=== PATIENT | male | born 1955 | race Caucasian/White ===

== ENCOUNTER → 2016-06-07 | Outpatient (CLI) | payer MEDICARE ==
[~2016-06-07] MED LIST: AMIT25TA PO; ASPI1TAB PO; GABA-282 PO; HYDR50CA2 PO; IRBE150T12 PO; LEVO137T2 PO; MELO15TA4 PO; METF-415 PO; METO-207 PO; METO10TA2 PO; OMEP20CA3 PO; SIMV40TA2 PO; SPIR25TA2 PO; TAMS0.4C2 PO; TEMA30CA PO; TIZA4CAP3 PO
--- NOTE | 2016-06-20 03:06 | ECWPNPC ---
PATIENT NAME: MANJEET NORWOOD : 1955 GENDER: MALE VISIT DATE: 06/07/2016 DISCHARGE DATE: 06/07/16 1153 VISIT LOCKED DATE TIME: PHYSICIAN: INES COATS RESOURCE: INES COATS REASON FOR APPOINTMENT 1. LOW BACK AND NECK AREA HISTORY OF PRESENT ILLNESS HISTORY OF PRESENT ILLNESS: PAIN THE PATIENT DESCRIBES THE PAIN... FALL RISK SCREENING: SCREENING :NO FALLS IN THE PAST YEAR TODAY'S VISIT: NOTES: RETURNS TO CLINIC FOR FIRST VISIT SINCE 12/20/15. RATES PAIN TODAY 5/10. DESCRIBES PAIN CONSTANT AND LOCATED AT BASE OF NECK AND RADIATES ACROSS TO BOTH SHOULDERS. CURRENT MEDICATIONS TAKING SIMVASTATIN 40 40MG TABLET ORAL TAKING ASPIRIN 81 MG TABLET DELAYED RELEASE 1 TABLET ORALLY ONCE A DAY TAKING AMITRIPTYLINE HCL 150 MG TABLET 1 TABLET AT BEDTIME ORALLY ONCE A DAY TAKING METFORMIN HCL ER 1000 MG TABLET EXTENDED RELEASE 24 HOUR 1 TABLET WITH EVENING MEAL ORALLY TWICE A DAY TAKING MECLIZINE HCL 25 MG TABLET CHEWABLE 1 TABLET NEEDED ORALLY ONCE A DAY TAKING FLOMAX 0.4 MG CAPSULE 1 CAPSULE 30 MINUTES AFTER THE SAME MEAL EACH DAY ORALLY QHS TAKING TIZANIDINE HCL 4 MG TABLET 1 TABLET NEEDED ORALLY EVERY 8 HRS TAKING MELOXICAM 15 MG TABLET 1 TABLET ORALLY ONCE A DAY TAKING SPIRONOLACTONE 25 MG TABLET 1 TABLET ORALLY ONCE A DAY TAKING LEVOTHYROXINE SODIUM 137 MCG TABLET 1 TABLET ORALLY ONCE A DAY TAKING IBUPROFEN 600 MG TABLET 1 TABLET ORALLY THREE TIMES A DAY TAKING METOCLOPRAMIDE HCL 10 MG TABLET ORALLY THREE TIMES A DAY NEEDED TAKING METOPROLOL SUCCINATE ER 50 MG TABLET EXTENDED RELEASE 24 HOUR 1 TABLET ORALLY ONCE A DAY TAKING OMEPRAZOLE 20 MG CAPSULE DELAYED RELEASE 2 CAPSULES ORALLY ONCE A DAY TAKING TEMAZEPAM 30 MG CAPSULE 1 CAPSULE AT BEDTIME NEEDED ORALLY ONCE A DAY MEDICATION LIST REVIEWED AND RECONCILED WITH THE PATIENT PAST MEDICAL HISTORY HIGH BLOOD PRESSURE CHRONIC SWELLING OF LEFT LEG SLEEP APNEA W/CPAP HYPERLIPIDEMIA CHRONIC BACK PAIN ACQUIRED PHIMOSIS DIABETES ARTHRITIS ALLERGIES NONE SURGICAL HISTORY VEIN STRIPPING LEFT AND RIGHT LEG BLOOD CLOT IN HEAD SOCIAL HISTORY GENERAL: PAIN CLINIC PFS, CLERGY, PUBLIC HEALTH REFERRALS CLERGY REFERRAL NEEDED?NO WAS THE PROVIDER NOTIFIED OF ANY PERTINENT INFO?NO PFS REFERRAL NEEDED?NO PUBLIC HEALTH REFERRAL NEEDED?NO PATIENT: ____. HOSPITALIZATION/MAJOR DIAGNOSTIC PROCEDURE NO HOSPITALIZATION HISTORY. REVIEW OF SYSTEMS CONSTITUTIONAL: ANY CHANGE IN YOUR MEDICAL CONDITION? NO . CHILLS NO . FEVER NO . INFECTION: DO YOU HAVE NEW INFECTIONS? NO . DO YOU HAVE HISTORY OF MRSA? NO . MUSCULOSKELETAL: ANY NEW PATTERNS OF PAIN OR NUMBNESS? NO . GASTROENTEROLOGY: ANY NEW CHANGE IN BOWEL CONTROL? NO - CONSTIPATION Q 1-2 WEEKS . GENITOURINARY: ANY NEW CHANGE IN BLADDER CONTROL? NO . IS THERE A CHANCE YOU COULD BE ? NO . HEMATOLOGY/LYMPH: DO YOU TAKE ANY BLOOD THINNERS? (FOR EXAMPLE- COUMADIN, PLAVIX, AGGRENOX, PLATEL, PRADAXA, OR XARELTO) NO . WHEN WAS YOUR LAST DOSE? DATE: TIME: . NEUROLOGY: HAVE YOU FALLEN IN THE PAST 6 MONTHS? YES . ANY NEW EXTREMITY NUMBNESS OR WEAKNESS? NO . CARDIOLOGY: DO YOU HAVE A PACEMAKER OR DEFIBRILLATOR? NO . RESPIRATORY: HAVE YOU BEEN SICK IN THE PAST WEEK? NO . FEVER NO . FLU LIKE SYMPTOMS? NO . COUGH NO . INTEGUMENTARY: DO YOU HAVE ANY RASHES OR OPEN SORES? NO . ALLERGIC/IMMUNO: ARE YOU ALLERGIC TO SHELLFISH OR IV DYE? NO . ANY NEW ALLERGIES? NO . PSYCHIATRIC: DO YOU HAVE THOUGHTS OF HURTING YOURSELF OR SOMEONE ELSE? NO . ARE YOU ABUSED, NEGLECTED, OR IN AN UNSAFE ENVIRONMENT? NO . ENDOCRINOLOGY: ARE YOU DIABETIC? YES BLOOD SUGARS IMPROVING, NOW LESS THAN 200. . OTHER: DO YOU NEED ANY PRESCRIPTIONS? NO . IF YES, PLEASE LIST: ____ . ANY NEW PROBLEMS WITH YOUR MEDICATIONS? NO . WHEN DID YOU LAST EAT? ____ . WHEN DID YOU LAST DRINK? ____ . WHAT DID YOU LAST DRINK? ____ . NAME OF PERSON DRIVING YOU HOME? ____ . DO YOU HAVE ANY OTHER QUESTIONS OR CONCERNS NO . REVIEWED BY: PROVIDER: INES WATSON . VITAL SIGNS WT 266 LBS, HT 69.5 IN, BMI 38.71 INDEX, BP 145/81 MM HG, HR 96 /MIN, RR 18 /MIN, TEMP 97.3 F, OXYGEN SAT % 93%, NA INITIALS SC11:06. EXAMINATION GENERAL EXAMINATION: PSYCHALERT , ORIENTED X 3 , APPROPRIATE MOOD AND AFFECT . HEENT:NORMOCEPHALIC, NO LYMPHADENOPATHY, NO THYROMEGLY. LUNGS:CLEAR TO AUSCULTATION BILATERALLY. HEART:NO MURMURS, CLICK OR RUBS, HEART RATE REGULAR, NO CAROTID BRUIT. MUSCULOSKELETAL:MUSCLE STRENGTH TESTING 5/5 BILATERAL UPPER EXTREMITIES. POINT TENDERNESS AT C7 PROMINENCE. , TRIGGER POINTS:, ELICITED WITH PALPATION OVER CERVICAL SPINOUS PROCESSES AND ACROSS THE TRAPEZIUS MUSCLES BILATERALLY. RESTRICTION OF ROM IS NOTED. SLOW TO RISE TO STANDING POSITION. POSTURE UPRIGHT. GAIT MILDLY ANTALGIC. EXTREMITIES:LEFT LEG WITH SIGNIFICANTLY GREATER CIRCUMFERNCE THAN RIGHT , FROM ANKLE TO KNEE. NO SPECIFIC EDEMA NOTED IN LEFT LEG. NO ERRYTHEMA NOTED LEFT LEG. NEUROLOGIC EXAM:DTR'S TRACE BILATERALLY IN BILATERAL UPPER EXTREMITIES, AND AT LEFT KNEE, 2+ RIGHT KNEE. NO CLONUS. SENSORY CHANGE LEFT LATERAL THIGH ONLY.. ASSESSMENTS LUMBAR FACET ARTHROPATHY - M46.96 (PRIMARY) CERVICAL DISC DISPLACEMENT - M50.20 CERVICAL RADICULOPATHY - M54.12 TREATMENT LUMBAR FACET ARTHROPATHY NOTES: CALL HERE -[phone] IF NOT HEARING ON SURGICAL APPOINTMENT IN TWO (2) WEEKS. , #128 - SCREENING BMI AND F/U PLAN IN : BMI ABOVE NORMAL TODAY. DISCUSSED WITH PATIENT NUTRITIONAL FOOD CHOICES TO ASSIST WITH WEIGHT LOSS. RECCOMMENDED REDUCING SALT, SUGAR, SODA INTAKE. RECOMMEND INCREASE ACTIVITY TO INCLUDE WALKING ON A REGULAR BASIS. REFERRAL TO:[facility] REASON:CERVICAL DISC DISPLACEMENT, BILATERAL CERVICAL RADICAULOPATHY. PLEASE EVAL FOR SURGICAL OPTIONS CERVICAL DISC DISPLACEMENT CERVICAL EPIDURAL INES CRAWFORD 06/07/2016 11:36:08 AM > BILATERAL NECK PAIN PROCEDURE CODES G8730 PAIN ASSESS POS TOOL F/U PLAN DOC G8427 DOC MEDS VERIFIED W/PT OR RE G8783 BP SCR PRFRM RCMDD DEFIND SCR INTVL 3016F PT SCRND UNHLTHY [place] USE 1124F ACP DISCUSS-NO DSCNMKR DOCD 1036F TOBACCO NON-USER 0518F FALL PLAN OF CARE DOCD G8420 BMI<30 AND >=22 CALC & DOCU 3288F FALL RISK ASSESSMENT DOCD FA211 ESTABILISHED PATIENT [facility] F[facility] CHARGE DISPOSITION & COMMUNICATION FOLLOW UP AFTER INJECTION (REASON: CHECK AUTH FOR CESB) ELECTRONICALLY SIGNED BY YUSEF CLOEMAN ON 06/19/2016 AT 09:32 AM EDT DISCLAIMER : THIS IS A VISIT SUMMARY EXTRACTED FROM THE [employer] CHART. IT IS NOT A COPY OF THE [employer] PROGRESS NOTE. MTDD
== END ==
LOC: M PAIN 11:00
PROVIDERS: ATTEND Nurse Practitioner Family
DX: G89.29 Other chronic pain (principal); M46.96 Unspecified inflammatory spondylopathy, lumbar region; M50.20 Other cervical disc displacement, unspecified cervical region; M54.12 Radiculopathy, cervical region; I10 Essential (primary) hypertension; G47.30 Sleep apnea, unspecified; E78.5 Hyperlipidemia, unspecified; E11.9 Type 2 diabetes mellitus without complications; M19.90 Unspecified osteoarthritis, unspecified site; Z79.82 Long term (current) use of aspirin; Z79.84 Long term (current) use of oral hypoglycemic drugs; Z79.1 Long term (current) use of non-steroidal anti-inflammatories (NSAID); Z79.899 Other long term (current) drug therapy

== ENCOUNTER → 2016-06-23 | Outpatient (CLI) | payer MEDICARE ==
[~2016-06-23] MED LIST changes: +ISOVUE-M 300 61% 15ML VIAL (Q9967) As Ordered ONE; +LIDOCAINE 1% SDV INJ 30 ML VIAL As Ordered ONE; +diazePAM 5 MG TAB As Ordered ONE; +methylPREDNISolone SUSP 40 MG/ML (DEPO-medrol) VIAL (J1030) As Ordered ONE; +oxyCODONE 5MG TAB As Ordered ONE
--- NOTE | 2016-06-23 18:16 | REP ---
FLUOROSCOPIC GUIDED SPINAL INJECTION: The films were reviewed with Dr. Roberts. The patient has a history of neck pain. The portable C-Arm is provided in the OR for Dr. Harry for fluoroscopic guidance. Three intraoperative fluoroscopic spot films were obtained for needle placement verification for cervical epidural injection. The films are on the PACs system and are available for review. 15 seconds of fluoroscopy time was utilized for this procedure. Reviewed by LORENA Melvin 06/26/2016 08:20 AEdited and Signed by Tim Roberts MD 06/26/2016 05:37 P
--- NOTE | 2016-07-02 23:59 | ECWPNPC ---
PATIENT NAME: MANJEET NORWOOD : 1955 GENDER: MALE VISIT DATE: 06/23/2016 DISCHARGE DATE: 06/23/16 1410 VISIT LOCKED DATE TIME: PHYSICIAN: TRACI VILLA RESOURCE: TRACI VILLA REASON FOR APPOINTMENT 1. CE HISTORY OF PRESENT ILLNESS HISTORY OF PRESENT ILLNESS: PAIN THE PATIENT DESCRIBES THE PAIN... FALL RISK SCREENING: SCREENING :NO FALLS IN THE PAST YEAR CURRENT MEDICATIONS TAKING SIMVASTATIN 40 40MG TABLET ORAL , NOTES: 2199 TAKING ASPIRIN 81 MG TABLET DELAYED RELEASE 1 TABLET ORALLY ONCE A DAY, NOTES: YESTERDAY AM TAKING AMITRIPTYLINE HCL 150 MG TABLET 1 TABLET AT BEDTIME ORALLY ONCE A DAY, NOTES: 2199 TAKING METFORMIN HCL ER 1000 MG TABLET EXTENDED RELEASE 24 HOUR 1 TABLET WITH EVENING MEAL ORALLY TWICE A DAY, NOTES: DINNER TAKING MECLIZINE HCL 25 MG TABLET CHEWABLE 1 TABLET NEEDED ORALLY ONCE A DAY, NOTES: YESTERDAY AM TAKING FLOMAX 0.4 MG CAPSULE 1 CAPSULE 30 MINUTES AFTER THE SAME MEAL EACH DAY ORALLY QHS, NOTES: YESTERDAY AM TAKING TIZANIDINE HCL 4 MG TABLET 1 TABLET NEEDED ORALLY EVERY 8 HRS, NOTES: 2199 TAKING MELOXICAM 15 MG TABLET 1 TABLET ORALLY ONCE A DAY, NOTES: YESTERDAY AM TAKING SPIRONOLACTONE 25 MG TABLET 1 TABLET ORALLY ONCE A DAY, NOTES: YESTERDAY AM TAKING LEVOTHYROXINE SODIUM 137 MCG TABLET 1 TABLET ORALLY ONCE A DAY, NOTES: YESTERDAY AM TAKING IBUPROFEN 600 MG TABLET 1 TABLET ORALLY THREE TIMES A DAY, NOTES: TAKING METOCLOPRAMIDE HCL 10 MG TABLET ORALLY THREE TIMES A DAY NEEDED, NOTES: 2199 TAKING METOPROLOL SUCCINATE ER 50 MG TABLET EXTENDED RELEASE 24 HOUR 1 TABLET ORALLY ONCE A DAY, NOTES: YESRTDAY AM TAKING OMEPRAZOLE 20 MG CAPSULE DELAYED RELEASE 2 CAPSULES ORALLY ONCE A DAY, NOTES: YESTERDAY AM TAKING TEMAZEPAM 30 MG CAPSULE 1 CAPSULE AT BEDTIME NEEDED ORALLY ONCE A DAY, NOTES: 2199 MEDICATION LIST REVIEWED AND RECONCILED WITH THE PATIENT PAST MEDICAL HISTORY HIGH BLOOD PRESSURE CHRONIC SWELLING OF LEFT LEG SLEEP APNEA W/CPAP HYPERLIPIDEMIA CHRONIC BACK PAIN ACQUIRED PHIMOSIS DIABETES ARTHRITIS ALLERGIES NONE REVIEW OF SYSTEMS CONSTITUTIONAL: ANY CHANGE IN YOUR MEDICAL CONDITION? NO . CHILLS NO . FEVER NO . INFECTION: DO YOU HAVE NEW INFECTIONS? NO . DO YOU HAVE HISTORY OF MRSA? NO . MUSCULOSKELETAL: ANY NEW PATTERNS OF PAIN OR NUMBNESS? NO . GASTROENTEROLOGY: ANY NEW CHANGE IN BOWEL CONTROL? NO . GENITOURINARY: ANY NEW CHANGE IN BLADDER CONTROL? NO . IS THERE A CHANCE YOU COULD BE ? NO . HEMATOLOGY/LYMPH: DO YOU TAKE ANY BLOOD THINNERS? (FOR EXAMPLE- COUMADIN, PLAVIX, AGGRENOX, PLATEL, PRADAXA, OR XARELTO) NO . WHEN WAS YOUR LAST DOSE? DATE: TIME: . NEUROLOGY: HAVE YOU FALLEN IN THE PAST 6 MONTHS? NO . ANY NEW EXTREMITY NUMBNESS OR WEAKNESS? NO . CARDIOLOGY: DO YOU HAVE A PACEMAKER OR DEFIBRILLATOR? NO . RESPIRATORY: HAVE YOU BEEN SICK IN THE PAST WEEK? NO . FEVER NO . FLU LIKE SYMPTOMS? NO . COUGH NO . INTEGUMENTARY: DO YOU HAVE ANY RASHES OR OPEN SORES? NO . ALLERGIC/IMMUNO: ARE YOU ALLERGIC TO SHELLFISH OR IV DYE? NO . ANY NEW ALLERGIES? NO . PSYCHIATRIC: DO YOU HAVE THOUGHTS OF HURTING YOURSELF OR SOMEONE ELSE? NO . ARE YOU ABUSED, NEGLECTED, OR IN AN UNSAFE ENVIRONMENT? NO . ENDOCRINOLOGY: ARE YOU DIABETIC? YES 241 AT 0930 TODAY . OTHER: DO YOU NEED ANY PRESCRIPTIONS? NO . IF YES, PLEASE LIST: ____ . ANY NEW PROBLEMS WITH YOUR MEDICATIONS? NO . WHEN DID YOU LAST EAT? 6PM . WHEN DID YOU LAST DRINK? 10PM . WHAT DID YOU LAST DRINK? WATER . NAME OF PERSON DRIVING YOU HOME? ROBER . DO YOU HAVE ANY OTHER QUESTIONS OR CONCERNS NO . REVIEWED BY: PROVIDER: . VITAL SIGNS WT 263.8 LBS, HT 69.5 IN, BMI 38.39 INDEX, BP 138/79 MM HG, HR 76 /MIN, RR 18 /MIN, TEMP 97.3 F, OXYGEN SAT % 95%, NA INITIALS SC 11:30, REVIEWED BY: LS. ASSESSMENTS CERVICAL DISC DISORDER AT C5-C6 LEVEL WITH RADICULOPATHY - M50.122 (PRIMARY) PROCEDURES PN CERVICAL EPIDURAL PRE PROCEDURE DIAGNOSIS CERVICAL DISC DISORDER WITH RADICULOPATHY POST PROCEDURE DIAGNOSIS CERVICAL DISC DISORDER WITH RADICULOPATHY PROCEDURE CERVICAL EPIDURAL STEROID INJECTION UNDER FLUOROSCOPIC GUIDANCE SURGEON DR. TRACI VILLA REED CLEANER NONE ANESTHESIA LOCAL PRE PROCEDURE NOTE THE PATIENT HAS A HISTORY OF CHRONIC CERVICAL PAIN. I EVALUATE THE PATIENT AND REVIEWED THE CHART. I WENT OVER THE RISKS, ALTERNATIVES, AND BENEFITS ASSOCIATED WITH THIS PROCEDURE. THE PATIENT WOULD LIKE TO PROCEED AND GIVE CONSENT TO PERFORMED THE PROCEDURE. THE PATIENT DENIES UNEXPLAINABLE WEIGHT LOSS, FEVER, CHILLS, OR NEW CHANGES IN URINARY OR BOWEL CONTROL DESCRIPTION OF PROCEDURE THE PATIENT WAS BROUGHT TO THE PROCEDURE ROOM AND PLACED IN THE PRONE POSITION. THE CERVICOTHORACIC AREA WAS CLEANED WITH BETADINE SOLUTION AND DRAPED ASEPTICALLY. THE PROCEDURE WAS DONE UNDER STERILE CONDITIONS. I CHECKED LATERALITY AND THE LEVEL WHERE THE PROCEDURE WAS GOING TO BE PERFORMED WITH THE PATIENT AND THE SUPPORTING STAFF AT THE MOMENT OF THE TIME OUT IN THE PROCEDURE ROOM. UNDER FLUOROSCOPIC GUIDANCE, THE TARGET WAS SELECTED AT THE INTERLAMINAR LEVEL OF C7-T1. LIDOCAINE WAS USED TO NUMB THE SKIN AND THE SUBCUTANEOUS TISSUE BELOW IT. EPIDURAL TUOHY NEEDLE 17-GAUGE WAS ADVANCED UNDER FLUOROSCOPIC GUIDANCE AND FOLLOWING PATIENT FEEDBACK UNTIL THE EPIDURAL SPACE WAS REACHED 6 CM DEEP INTO THE SKIN BY THE LOSS OF RESISTANCE TECHNIQUE. ISOVUE M DYE 30%, 0.25 ML, WAS INJECTED SHOWING ADEQUATE SPREAD OF THE DYE. THEN, A SOLUTION OF 3 ML OF NORMAL SALINE WITH DEPO-MEDROL 60 MG WAS INJECTED SLOWLY FOLLOWING PATIENT FEEDBACK. THERE WAS NO EVIDENCE OF BLOOD, PARESTHESIA OR CEREBROSPINAL FLUID DURING THE PROCEDURE. THE PATIENT WAS SENT TO THE RECOVERY ROOM. THE PATIENT WAS MOVING THE EXTREMITIES AND DOING WELL. THERE WAS NO COMPLICATION DURING THE PROCEDURE. FLUOROSCOPY TIME WAS 15 SECONDS POST PROCEDURE NOTE THE PATIENT WILL BE SEEN IN A FOLLOW UP IN THE NEXT FEW WEEKS. INSTRUCTIONS WERE GIVEN, QUESTIONS WERE ANSWERED, AND THE PATIENT EXPRESSED UNDERSTANDING AND AGREES WITH THE PLAN. I, IVANIA SMITH, DOCUMENTED THE ABOVE INFORMATION ACTING A SCRIBE FOR DR. VILLA. I HAVE REVIEWED THE ABOVE DOCUMENT, WRITTEN BY IVANIA SMITH SCRIBSilverio AND I VERIFY THAT IT IS [facility] FLUORO GUIDE SPINE INJECTION (PAIN)[id number] PROCEDURE CODES 74012 CERVICAL/THORACIC W/ IMAGING 6045F RADXPS IN END [id number] PXD DISPOSITION & COMMUNICATION FOLLOW UP 3 WEEKS ELECTRONICALLY SIGNED BY TRACI VILLA MD ON 07/02/2016 AT 05:52 PM EDT DISCLAIMER : THIS IS A VISIT SUMMARY EXTRACTED FROM THE [employer] CHART. IT IS NOT A COPY OF THE [employer] PROGRESS NOTE. MTDD
== END ==
LOC: M PAIN 11:40
PROVIDERS: ATTEND Anesthesiology
DX: G89.29 Other chronic pain (principal); M50.122 Cervical disc disorder at C5-C6 level with radiculopathy; I10 Essential (primary) hypertension; R60.0 Localized edema; G47.30 Sleep apnea, unspecified; E78.5 Hyperlipidemia, unspecified; E11.9 Type 2 diabetes mellitus without complications; M19.90 Unspecified osteoarthritis, unspecified site; Z79.82 Long term (current) use of aspirin; Z79.84 Long term (current) use of oral hypoglycemic drugs; Z79.1 Long term (current) use of non-steroidal anti-inflammatories (NSAID); Z79.899 Other long term (current) drug therapy
CPT/HCPCS: 62321; J1030; Q9967

== ENCOUNTER → 2016-07-14 | Outpatient (CLI) | payer MEDICARE ==
[~2016-07-14] MED LIST changes: -ISOVUE-M 300 61% 15ML VIAL (Q9967) As Ordered ONE; -LIDOCAINE 1% SDV INJ 30 ML VIAL As Ordered ONE; -diazePAM 5 MG TAB As Ordered ONE; -methylPREDNISolone SUSP 40 MG/ML (DEPO-medrol) VIAL (J1030) As Ordered ONE; -oxyCODONE 5MG TAB As Ordered ONE
--- NOTE | 2016-07-28 00:53 | ECWPNPC ---
PATIENT NAME: MANJEET NORWOOD : 1955 GENDER: MALE VISIT DATE: 07/14/2016 DISCHARGE DATE: 07/14/16 1535 VISIT LOCKED DATE TIME: PHYSICIAN: INES COATS RESOURCE: INES COATS REASON FOR APPOINTMENT 1. POST PROCEDURE HISTORY OF PRESENT ILLNESS HISTORY OF PRESENT ILLNESS: PAIN THE PATIENT DESCRIBES THE PAIN... FALL RISK SCREENING: SCREENING :NO FALLS IN THE PAST YEAR TODAY'S VISIT: NOTES: S/P CESB ON 06/23/16. NOTES RELIEF OF PAIN ON LEFT SIDE AND INTO SHOULDERS BUT IS STILL HAVING PAIN ON THE RIGHT. . REPORTS RELIEF OF PAIN ONLY FOR A FEW DAYS ON THE RIGHT. NEW DIAGNOSIS OF BILATERAL CARPAL TUNNEL. ALSO HAS A SURGICAL APPOINTMENT BUT NOT SURE WITH HO OR FOR WHAT BUT THINKS ITS ABOUT HIS BACK. . CURRENT MEDICATIONS TAKING SIMVASTATIN 40 40MG TABLET ORAL , NOTES: 220 TAKING ASPIRIN 81 MG TABLET DELAYED RELEASE 1 TABLET ORALLY ONCE A DAY, NOTES: YESTERDAY AM TAKING AMITRIPTYLINE HCL 150 MG TABLET 1 TABLET AT BEDTIME ORALLY ONCE A DAY, NOTES: 2199 TAKING METFORMIN HCL ER 1000 MG TABLET EXTENDED RELEASE 24 HOUR 1 TABLET WITH EVENING MEAL ORALLY TWICE A DAY, NOTES: DINNER TAKING MECLIZINE HCL 25 MG TABLET CHEWABLE 1 TABLET NEEDED ORALLY ONCE A DAY, NOTES: YESTERDAY AM TAKING FLOMAX 0.4 MG CAPSULE 1 CAPSULE 30 MINUTES AFTER THE SAME MEAL EACH DAY ORALLY QHS, NOTES: YESTERDAY AM TAKING TIZANIDINE HCL 4 MG TABLET 1 TABLET NEEDED ORALLY EVERY 8 HRS, NOTES: 2199 TAKING MELOXICAM 15 MG TABLET 1 TABLET ORALLY ONCE A DAY, NOTES: YESTERDAY AM TAKING SPIRONOLACTONE 25 MG TABLET 1 TABLET ORALLY ONCE A DAY, NOTES: YESTERDAY AM TAKING LEVOTHYROXINE SODIUM 137 MCG TABLET 1 TABLET ORALLY ONCE A DAY, NOTES: YESTERDAY AM TAKING IBUPROFEN 600 MG TABLET 1 TABLET ORALLY THREE TIMES A DAY, NOTES: MONTHS TAKING METOCLOPRAMIDE HCL 10 MG TABLET ORALLY THREE TIMES A DAY NEEDED, NOTES: 220 TAKING METOPROLOL SUCCINATE ER 50 MG TABLET EXTENDED RELEASE 24 HOUR 1 TABLET ORALLY ONCE A DAY, NOTES: YESRTDAY AM TAKING OMEPRAZOLE 20 MG CAPSULE DELAYED RELEASE 2 CAPSULES ORALLY ONCE A DAY, NOTES: YESTERDAY AM TAKING TEMAZEPAM 30 MG CAPSULE 1 CAPSULE AT BEDTIME NEEDED ORALLY ONCE A DAY, NOTES: 2200 MEDICATION LIST REVIEWED AND RECONCILED WITH THE PATIENT PAST MEDICAL HISTORY HIGH BLOOD PRESSURE CHRONIC SWELLING OF LEFT LEG SLEEP APNEA W/CPAP HYPERLIPIDEMIA CHRONIC BACK PAIN ACQUIRED PHIMOSIS DIABETES ARTHRITIS ALLERGIES NONE SURGICAL HISTORY VEIN STRIPPING LEFT AND RIGHT LEG BLOOD CLOT IN HEAD REVIEW OF SYSTEMS CONSTITUTIONAL: ANY CHANGE IN YOUR MEDICAL CONDITION? NO . CHILLS NO . FEVER NO . INFECTION: DO YOU HAVE NEW INFECTIONS? NO . DO YOU HAVE HISTORY OF MRSA? NO . MUSCULOSKELETAL: ANY NEW PATTERNS OF PAIN OR NUMBNESS? NO. PT STATES CERVICAL EPIDURAL DONE WITH US 06/23/16, PT REPORTS COUPLE DAYS OF RELIEF, THEN PAIN STARTED ON RIGHT NECK. CURRENTLY 09/04. . GASTROENTEROLOGY: ANY NEW CHANGE IN BOWEL CONTROL? NO . GENITOURINARY: ANY NEW CHANGE IN BLADDER CONTROL? NO . IS THERE A CHANCE YOU COULD BE ? NO . HEMATOLOGY/LYMPH: DO YOU TAKE ANY BLOOD THINNERS? (FOR EXAMPLE- COUMADIN, PLAVIX, AGGRENOX, PLATEL, PRADAXA, OR XARELTO) NO . WHEN WAS YOUR LAST DOSE? DATE: TIME: . NEUROLOGY: HAVE YOU FALLEN IN THE PAST 6 MONTHS? NO, NEAR FALL FOR LOSS OF BALANCE . ANY NEW EXTREMITY NUMBNESS OR WEAKNESS? NO . CARDIOLOGY: DO YOU HAVE A PACEMAKER OR DEFIBRILLATOR? NO . RESPIRATORY: HAVE YOU BEEN SICK IN THE PAST WEEK? NO . FEVER NO . FLU LIKE SYMPTOMS? NO . COUGH NO . INTEGUMENTARY: DO YOU HAVE ANY RASHES OR OPEN SORES? NO . ALLERGIC/IMMUNO: ARE YOU ALLERGIC TO SHELLFISH OR IV DYE? NO . ANY NEW ALLERGIES? NO . PSYCHIATRIC: DO YOU HAVE THOUGHTS OF HURTING YOURSELF OR SOMEONE ELSE? NO . ARE YOU ABUSED, NEGLECTED, OR IN AN UNSAFE ENVIRONMENT? NO . ENDOCRINOLOGY: ARE YOU DIABETIC? YES . OTHER: DO YOU NEED ANY PRESCRIPTIONS? NO . IF YES, PLEASE LIST: ____ . ANY NEW PROBLEMS WITH YOUR MEDICATIONS? NO . WHEN DID YOU LAST EAT? ____ . WHEN DID YOU LAST DRINK? ____ . WHAT DID YOU LAST DRINK? ____ . NAME OF PERSON DRIVING YOU HOME? ____ . DO YOU HAVE ANY OTHER QUESTIONS OR CONCERNS NO . REVIEWED BY: PROVIDER: INES COATS DREDGEMASTER . VITAL SIGNS WT 262 LBS, HT 69.5 IN, BMI 38.13 INDEX, BP 128/72 MM HG, HR 75 /MIN, RR 18 /MIN, TEMP 97.3 F, OXYGEN SAT % 94, SAFE IN ENV? (Y/N) Y, REVIEWED BY: EM. EXAMINATION GENERAL EXAMINATION: PSYCHALERT , ORIENTED X 3 , APPROPRIATE MOOD AND AFFECT . LUNGS:CLEAR TO AUSCULTATION BILATERALLY, NO WHEEZES . HEART:HEART RATE REGULAR. MUSCULOSKELETAL:MUSCLE STRENGTH TESTING 5/5 BILATERAL UPPER EXTREMITIES. POINT TENDERNESS AT C7 PROMINENCE. , TRIGGER POINTS:, ELICITED WITH PALPATION OVER CERVICAL SPINOUS PROCESSES AND ACROSS THE TRAPEZIUS MUSCLES BILATERALLY. RESTRICTION OF ROM IS NOTED. . POSTURE UPRIGHT. GAIT NONANTALGIC. EXTREMITIES:LEFT LEG WITH SIGNIFICANTLY GREATER CIRCUMFERNCE THAN RIGHT , FROM ANKLE TO KNEE. NO SPECIFIC EDEMA NOTED IN LEFT LEG. NO ERRYTHEMA NOTED LEFT LEG. NEUROLOGIC EXAM:DTR'S TRACE BILATERALLY IN BILATERAL UPPER EXTREMITIES, AND AT LEFT KNEE, 2+ RIGHT KNEE. NO CLONUS. SENSORY CHANGE LEFT LATERAL THIGH ONLY.. ASSESSMENTS CERVICAL DISC DISORDER AT C5-C6 LEVEL WITH RADICULOPATHY - M50.122 (PRIMARY) MYALGIA - M79.1 TREATMENT CERVICAL DISC DISORDER AT C5-C6 LEVEL WITH RADICULOPATHY TRIGGER POINT 3 + INES SEBASTIAN 07/14/2016 3:16:40 PM > NECK AND SHOULDERS NOTES: CONTINUE EXERCISES AND STRETCHES,TRIGGER POINT INJECTION MATERIAL WAS PRINTED,TRIGGER POINT INJECTION: YOUR EXPERIENCE MATERIAL WAS PRINTED. PROCEDURE CODES FA211 ESTABILISHED PATIENT [facility] CHARGE DISPOSITION & COMMUNICATION FOLLOW UP AFTER INJECTION (REASON: CHECK AUTH FOR TPI/NECK/SHOULDERS) ELECTRONICALLY SIGNED BY YUSEF COLEMAN ON 07/27/2016 AT 06:26 PM EDT DISCLAIMER : THIS IS A VISIT SUMMARY EXTRACTED FROM THE [employer] CHART. IT IS NOT A COPY OF THE [employer] PROGRESS NOTE. DIXON
== END ==
LOC: M PAIN 14:20
PROVIDERS: ATTEND Nurse Practitioner Family
DX: G89.29 Other chronic pain (principal); M50.122 Cervical disc disorder at C5-C6 level with radiculopathy; M25.511 Pain in right shoulder; M79.1 Myalgia; G56.03 Carpal tunnel syndrome, bilateral upper limbs; I10 Essential (primary) hypertension; G47.30 Sleep apnea, unspecified; E78.5 Hyperlipidemia, unspecified; E11.9 Type 2 diabetes mellitus without complications; M19.90 Unspecified osteoarthritis, unspecified site; Z79.82 Long term (current) use of aspirin; Z79.84 Long term (current) use of oral hypoglycemic drugs; Z79.1 Long term (current) use of non-steroidal anti-inflammatories (NSAID); Z79.899 Other long term (current) drug therapy

== ENCOUNTER → 2016-08-09 | Outpatient (CLI) | payer MEDICARE ==
[~2016-08-09] MED LIST changes: +BUPIVACAINE HCL 0.25% 10 ML VIAL As Ordered ONE; +BUPIVACAINE HCL 0.25% 30 ML VIAL As Ordered ONE; +TRIAMCINOLONE ACETONIDE SUSP 40 MG/ML VIAL (J3301) As Ordered ONE; +diazePAM 5 MG TAB As Ordered ONE; +oxyCODONE 5MG TAB As Ordered ONE
--- NOTE | 2016-08-18 00:57 | ECWPNPC ---
PATIENT NAME: MANJEET NORWOOD : 1955 GENDER: MALE VISIT DATE: 08/09/2016 DISCHARGE DATE: 08/09/16 1632 VISIT LOCKED DATE TIME: PHYSICIAN: TRACI VILLA RESOURCE: TRACI VILLA REASON FOR APPOINTMENT 1. NECK HISTORY OF PRESENT ILLNESS HISTORY OF PRESENT ILLNESS: PAIN THE PATIENT DESCRIBES THE PAIN... FALL RISK SCREENING: SCREENING :NO FALLS IN THE PAST YEAR CURRENT MEDICATIONS TAKING SIMVASTATIN 40 40MG TABLET ORAL , NOTES: 08/08/162199 TAKING ASPIRIN 81 MG TABLET DELAYED RELEASE 1 TABLET ORALLY ONCE A DAY, NOTES: 08/08/16 0800 TAKING AMITRIPTYLINE HCL 150 MG TABLET 1 TABLET AT BEDTIME ORALLY ONCE A DAY, NOTES: 08/08/162199 TAKING METFORMIN HCL ER 1000 MG TABLET EXTENDED RELEASE 24 HOUR 1 TABLET WITH EVENING MEAL ORALLY TWICE A DAY, NOTES: 08/08/16 1700 TAKING MECLIZINE HCL 25 MG TABLET CHEWABLE 1 TABLET NEEDED ORALLY ONCE A DAY, NOTES: 08/08/162199 TAKING FLOMAX 0.4 MG CAPSULE 1 CAPSULE 30 MINUTES AFTER THE SAME MEAL EACH DAY ORALLY QHS, NOTES: 08/08/16 08 TAKING TIZANIDINE HCL 4 MG TABLET 1 TABLET NEEDED ORALLY EVERY 8 HRS, NOTES: 08/08/162199 TAKING MELOXICAM 15 MG TABLET 1 TABLET ORALLY ONCE A DAY, NOTES: 08/08/16 08 TAKING SPIRONOLACTONE 25 MG TABLET 1 TABLET ORALLY ONCE A DAY, NOTES: 08/08/16 08 TAKING LEVOTHYROXINE SODIUM 137 MCG TABLET 1 TABLET ORALLY ONCE A DAY, NOTES: 08/08/16 08 TAKING IBUPROFEN 600 MG TABLET 1 TABLET ORALLY THREE TIMES A DAY, NOTES: > 2 MONTHS TAKING METOCLOPRAMIDE HCL 10 MG TABLET ORALLY THREE TIMES A DAY NEEDED, NOTES: 08/08/162199 TAKING METOPROLOL SUCCINATE ER 50 MG TABLET EXTENDED RELEASE 24 HOUR 1 TABLET ORALLY ONCE A DAY, NOTES: 08/08/16 08 TAKING OMEPRAZOLE 20 MG CAPSULE DELAYED RELEASE 2 CAPSULES ORALLY ONCE A DAY, NOTES: 08/08/16 08 TAKING TEMAZEPAM 30 MG CAPSULE 1 CAPSULE AT BEDTIME NEEDED ORALLY ONCE A DAY, NOTES: 08/08/162199 MEDICATION LIST REVIEWED AND RECONCILED WITH THE PATIENT PAST MEDICAL HISTORY HIGH BLOOD PRESSURE CHRONIC SWELLING OF LEFT LEG SLEEP APNEA W/CPAP HYPERLIPIDEMIA CHRONIC BACK PAIN ACQUIRED PHIMOSIS DIABETES ARTHRITIS ALLERGIES NONE REVIEW OF SYSTEMS REVIEWED BY: PROVIDER: . CONSTITUTIONAL: ANY CHANGE IN YOUR MEDICAL CONDITION? NO . CHILLS NO . FEVER NO . INFECTION: DO YOU HAVE NEW INFECTIONS? NO . DO YOU HAVE HISTORY OF MRSA? NO . MUSCULOSKELETAL: ANY NEW PATTERNS OF PAIN OR NUMBNESS? NO . GASTROENTEROLOGY: ANY NEW CHANGE IN BOWEL CONTROL? NO . GENITOURINARY: ANY NEW CHANGE IN BLADDER CONTROL? NO . IS THERE A CHANCE YOU COULD BE ? NO . HEMATOLOGY/LYMPH: DO YOU TAKE ANY BLOOD THINNERS? (FOR EXAMPLE- COUMADIN, PLAVIX, AGGRENOX, PLATEL, PRADAXA, OR XARELTO) NO . WHEN WAS YOUR LAST DOSE? DATE: TIME: . NEUROLOGY: HAVE YOU FALLEN IN THE PAST 6 MONTHS? NO . ANY NEW EXTREMITY NUMBNESS OR WEAKNESS? NO . CARDIOLOGY: DO YOU HAVE A PACEMAKER OR DEFIBRILLATOR? NO . RESPIRATORY: HAVE YOU BEEN SICK IN THE PAST WEEK? NO . FEVER NO . FLU LIKE SYMPTOMS? NO . COUGH NO . INTEGUMENTARY: DO YOU HAVE ANY RASHES OR OPEN SORES? NO . ALLERGIC/IMMUNO: ARE YOU ALLERGIC TO SHELLFISH OR IV DYE? NO . ANY NEW ALLERGIES? NO . PSYCHIATRIC: DO YOU HAVE THOUGHTS OF HURTING YOURSELF OR SOMEONE ELSE? NO . ARE YOU ABUSED, NEGLECTED, OR IN AN UNSAFE ENVIRONMENT? NO . ENDOCRINOLOGY: ARE YOU DIABETIC? YES . OTHER: DO YOU NEED ANY PRESCRIPTIONS? NO . IF YES, PLEASE LIST: ____ . ANY NEW PROBLEMS WITH YOUR MEDICATIONS? NO . WHEN DID YOU LAST EAT? ____08/08/16 2020 . WHEN DID YOU LAST DRINK? ____08/09/16 0800 . WHAT DID YOU LAST DRINK? ____WATER . NAME OF PERSON DRIVING YOU HOME? ____SON ROBER . DO YOU HAVE ANY OTHER QUESTIONS OR CONCERNS NO . VITAL SIGNS WT 250.0 LBS, HT 69.5 IN, BMI 36.39 INDEX, BP 145/80 MM HG, HR 100 /MIN, RR 16 /MIN, TEMP 97.4 F, OXYGEN SAT % 94%, SAFE IN ENV? (Y/N) YES, NA INITIALS TL 1432, REVIEWED BY: ASSESSMENTS MYALGIA - M79.1 (PRIMARY) PROCEDURES PN TRIGGER POINT INJECTION WITH STEROIDS PRE PROCEDURE DIAGNOSIS 1. MYALGIA 2. PAIN AT RIGHT NECK AREA, RIGHT SHOULDER AREA, AND RIGHT THORACIC AREA POST PROCEDURE DIAGNOSIS 1. MYALGIA 2. PAIN AT RIGHT NECK AREA, RIGHT SHOULDER AREA, AND RIGHT THORACIC AREA PROCEDURE TRIGGER POINT INJECTION AT RIGHT NECK AREA, RIGHT SHOULDER AREA, AND RIGHT THORACIC AREA SURGEON DR. 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 I EVALUATE THE PATIENT AND REVIEWED THE CHART. THERE IS EVIDENCE OF BANDS OF TISSUE WITH RESTRICTION OF MOVEMENT AND PRESENCE OF TRIGGER POINT AT THE AFFECTED AREA. I WENT OVER THE RISKS, ALTERNATIVES, AND BENEFITS ASSOCIATED WITH THIS PROCEDURE. THE PATIENT WOULD LIKE TO PROCEED AND GIVE CONSENT TO PERFORMED THE PROCEDURE. THE PATIENT DENIES UNEXPLAINABLE WEIGHT LOSS, FEVER, CHILLS, OR NEW CHANGES IN URINARY OR BOWEL CONTROL DESCRIPTION OF PROCEDURE THE PATIENT WAS BROUGHT TO THE PROCEDURE ROOM AND PLACED IN THE SITTING POSITION. THE AREA WAS CLEANED WITH ALCOHOL. THE PROCEDURE WAS DONE USING ASEPTIC STERILE TECHNIQUE. I CHECKED LATERALITY AND THE LEVEL WHERE THE PROCEDURE WAS GOING TO BE PERFORMED WITH THE PATIENT AND THE SUPPORTING STAFF AT THE MOMENT OF THE TIME OUT IN THE PROCEDURE ROOM. USING A 25-GAUGE NEEDLE, TRIGGER POINTS WERE INJECTED AT THE RIGHT NECK AREA, RIGHT SHOULDER AREA, AND RIGHT THORACIC AREA WITH A TOTAL OF 40 ML OF BUPIVACAINE 0.25% AND KENALOG 40 MG. THERE WAS NO EVIDENCE OF BLOOD, PARESTHESIA OR CEREBROSPINAL FLUID DURING THE PROCEDURE. THE PATIENT WAS SENT TO THE RECOVERY ROOM. THE PATIENT WAS MOVING THE EXTREMITIES AND DOING WELL. THERE WAS NO COMPLICATION DURING THE PROCEDURE POST PROCEDURE NOTE THE PATIENT WILL BE SEEN IN A FOLLOW UP IN THE NEXT FEW WEEKS. INSTRUCTIONS WERE GIVEN, QUESTIONS WERE ANSWERED, AND THE PATIENT EXPRESSED UNDERSTANDING AND AGREES WITH THE PLAN. I, IVANIA SMITH, DOCUMENTED THE ABOVE INFORMATION ACTING A SCRIBE FOR DR. VILLA. I HAVE REVIEWED THE ABOVE DOCUMENT, WRITTEN BY IVANIA HEDRICK AND I VERIFY THAT IT IS ACCURATE PROCEDURE CODES 59405 INJECT TRIGGER POINTS 3/> DISPOSITION & COMMUNICATION FOLLOW UP 3 WEEKS ELECTRONICALLY SIGNED BY TRACI VILLA MD ON 08/17/2016 AT 11:58 AM EDT DISCLAIMER : THIS IS A VISIT SUMMARY EXTRACTED FROM THE [employer] CHART. IT IS NOT A COPY OF THE [employer] PROGRESS NOTE. MTDD
== END ==
LOC: M PAIN 14:20
PROVIDERS: ATTEND Anesthesiology
DX: G89.29 Other chronic pain (principal); M79.1 Myalgia; M54.2 Cervicalgia; M25.511 Pain in right shoulder; M54.6 Pain in thoracic spine; I10 Essential (primary) hypertension; G47.30 Sleep apnea, unspecified; E78.5 Hyperlipidemia, unspecified; E11.9 Type 2 diabetes mellitus without complications; M19.90 Unspecified osteoarthritis, unspecified site
CPT/HCPCS: 20553; J3301

== ENCOUNTER → 2016-08-10 | Outpatient (CLI) | payer MEDICARE ==
[~2016-08-10] MED LIST changes: -BUPIVACAINE HCL 0.25% 10 ML VIAL As Ordered ONE; -BUPIVACAINE HCL 0.25% 30 ML VIAL As Ordered ONE; -TRIAMCINOLONE ACETONIDE SUSP 40 MG/ML VIAL (J3301) As Ordered ONE; -diazePAM 5 MG TAB As Ordered ONE; -oxyCODONE 5MG TAB As Ordered ONE
--- NOTE | 2016-08-11 08:37 | REP ---
MR CERVICAL SPINE WITHOUT CONTRAST: HISTORY: Neck pain. A disc bulge is present at the C2-3 level. There is minimal effacement of the thecal sac without spinal cord compression. Uncinate process hypertrophy is present on the right. This produces minimal narrowing of the right C2 neural foramen. The left C2 neural foramen is patent. A disc bulge is present at the C3-4 level. There is mild effacement of the thecal sac without spinal cord compression. Uncinate process hypertrophy is present on the left. This produces minimal narrowing of the left C3 neural foramen. The right C3 neural foramen is patent. A disc bulge is present at the C4-5 level. There is moderate effacement of the thecal sac without spinal cord compression. Bilateral uncinate process hypertrophy is present. This produces moderate narrowing of the C4 neural foramina. A disc bugle with associated osteophyte formation is present at the C5-6 level. There is moderate effacement of the thecal sac without spinal cord compression. Bilateral uncinate process hypertrophy is present. This produces moderate narrowing of the C5 neural foramina. A disc bulge is present at the C6-7 level. There is mild effacement of the thecal sac without spinal cord compression. Bilateral uncinate process hypertrophy is present. This produces mild and minimal narrowing of the right and left C6 neural foramina respectively . There is no other disc bulge or herniation. The remaining neural foramina are patent. The spinal cord is normal in signal intensity. Normal signal intensity is present in the cervical vertebral bodies. IMPRESSION: There is cervical spondylosis at the C2-3 through C6-7 levels without spinal cord compression. Signed by Josh Shah MD 08/11/2016 01:27 P
== END ==
LOC: M RAD 16:12
PROVIDERS: ATTEND Physician Assistant Surgical
DX: M43.12 Spondylolisthesis, cervical region (principal)